=== PATIENT | female | born 1960 | race Caucasian/White ===

== ENCOUNTER → 2018-04-06 | Outpatient (CLI) | payer OTHER ==
[~2018-04-06] MED LIST: GADOBUTROL 10 ML VIAL IVP ONE
== END ==
LOC: FIMAGING 13:20
DX: Z12.39 Encounter for other screening for malignant neoplasm of breast (principal); N60.19 Diffuse cystic mastopathy of unspecified breast; N62 Hypertrophy of breast; Z80.3 Family history of malignant neoplasm of breast
CPT/HCPCS: 0159T; 77059; A9585; C8908